=== PATIENT | female | born 1970 ===

== ENCOUNTER 2022-03-26 09:45 | Inpatient (IN) | payer OTHER ==
[~2022-03-26] VITALS: Ht 157.5 cm; Wt 70.8 kg
[2022-03-26] MEDS ORDERED: ATENOLOL50 MG PO (10:43)
[2022-03-26] MEDS ORDERED: ATACAND32 MG PO (10:43)
[2022-03-30] MEDS ORDERED: ESOMEPRAZOLE MA40 MG (11:21)
[2022-03-30] MEDS ORDERED: FLONASE16 GM (11:21)
[2022-04-02] MEDS ORDERED: PEPCID AC20 MG PO (08:54)
[2022-04-02] MEDS ORDERED: INTESTINEX680 M1 PO (08:54)
[2022-04-02] MEDS ORDERED: ULTRACET PO (08:54)
== END 2022-04-02 11:22 | disposition home or self-care (01) | DRG 331 ==
LOC: O/R 03-30 07:10 → SURH 03-30 07:10
PROVIDERS: ADMIT Surgery; ATTEND Surgery
PROC: 07BC4ZZ Excision of Pelvis Lymphatic, Percutaneous Endoscopic Approach (ICD-10-PCS; 2022-03-30)
PROC: 0DBF4ZZ Excision of Right Large Intestine, Percutaneous Endoscopic Approach (ICD-10-PCS; principal; 2022-03-30 13:15)
DX: D37.4 Neoplasm of uncertain behavior of colon (principal); D12.0 Benign neoplasm of cecum; R19.4 Change in bowel habit; R59.0 Localized enlarged lymph nodes; Z20.822 Contact with and (suspected) exposure to COVID-19